=== PATIENT | female | born 1925 | race Caucasian/White ===

== ENCOUNTER → 2017-01-15 | Outpatient (CLI) | payer MEDICARE, BC | END | disposition home or self-care (01) | LOC: LABWHC1 13:29 | PROVIDERS: ATTEND Nurse Practitioner Family | DX: Z53.9 Procedure and treatment not carried out, unspecified reason (principal) ==

== ENCOUNTER 2017-03-03 00:20 | Inpatient (IN) | payer MEDICARE, BC ==
[2017-03-03] MEDS ORDERED: SODIUM CHLORIDE 0.9% 500 ML IV STA (00:45)
--- NOTE | 2017-03-03 01:31 | XR ---
Age: 89 years Gender: Female History: Reason: altered mental status Exam: XR CXR 2 VIEWS Comparison: None Findings: Heart size is mildly enlarged. There is pulmonary vascular congestion. Interstitial opacities throughout both lungs raising possibility of interstitial pulmonary edema. Asymmetric left basilar opacity may reflect atelectasis or possible infiltrate. No evidence of pleural effusion. Mild T12 vertebral compression fracture and probable mild L1 compression fracture only partially imaged on lateral chest radiograph. Impression: Cardiomegaly with findings suggesting mild congestive failure and interstitial pulmonary edema. Left basilar atelectasis or possible infiltrate. Bony findings as described in body of report.
[2017-03-03 01:39] LABS: Glucose,Whole Blood 209 mg/dL (75-99)
[2017-03-03] MEDS ORDERED: MECLIZINE 12.5 MG TAB PO STA (01:49)
--- NOTE | 2017-03-03 01:50 | ED ---
Dizziness HPI <Moody Howard - Last Filed: 03/03/17 04:35> - General Source: EMS, RN notes reviewed, old records reviewed Mode of arrival: EMS Limitations: no limitations <Sejal Krueger - Last Filed: 03/03/17 06:03> - General Chief Complaint: Dizziness Stated Complaint: DIZZINESS Time Seen by Provider: 03/03/17 00:27 - History of Present Illness Initial Comments: This is an 89-year-old female presenting to the emergency Department chief complaint of sudden onset of dizziness at 10:30 AM and slurring her speech 10 minutes prior to arrival via EMS.. Patient reports that she was sitting at home in bed when she had the sensation occur. She reports that the room is spinning. She states that she's had a history of strokes in the past. She denies any other symptoms and felt good prior to the symptoms. Patient states that she does take medications for diabetes, high blood pressure. She has a history of A. fib and is currently on 0 toe and Plavix. She reports that she's had multiple vascular procedures including right sided femoral stents and she believed left-sided carotid stents. She reports that those are done by Dr. Ybarra.. Her ports that she did vomit she feels like everything is drifting towards the right side of the room.Patient denies any recent fever, chills, shortness of breath, chest pain, back pain, abdominal pain, nausea vomiting, numbness or tingling, dysuria or hematuria, constipation or diarrhea, headaches or visual changes, or any other current symptoms. (Sejal Krueger) - Related Data Home Medications Medication Instructions Recorded Confirmed Allopurinol [Zyloprim] 100 mg PO DAILY 07/20/14 01/15/17 Aspirin 81 mg PO HS 07/20/14 01/15/17 Atenolol 100 mg PO BID 07/20/14 01/15/17 Cholecalciferol [Vitamin D3] 1,000 unit PO DAILY@1200 07/20/14 01/15/17 Insulin Glargine,Hum.rec.anlog 20 unit SQ HS 07/20/14 01/15/17 [Lantus Solostar] Isosorbide Mononitrate [Imdur] 30 mg PO DAILY 07/20/14 01/15/17 Rivaroxaban [Xarelto] 20 mg PO HS 07/20/14 09/19/14 amLODIPine [Norvasc] 5 mg PO BID 07/20/14 01/15/17 glipiZIDE [Glucotrol] 10 mg PO AC-BID 07/20/14 01/15/17 sitaGLIPtin PHOSPHATE [Januvia] 100 mg PO DAILY 07/20/14 01/15/17 Furosemide [Lasix] 20 mg PO DAILY 08/03/14 01/15/17 Insulin Aspart [NovoLOG Flexpen] 0 units SQ AC-TID PRN 08/03/14 01/15/17 Benazepril [Lotensin] 20 mg PO DAILY 01/15/17 01/15/17 Budesonide-Formot 160-4.5 Mcg 2 puff INHALATION BID 01/15/17 01/15/17 [Symbicort 160-4.5 Mcg Inhaler] Pantoprazole [Protonix] 40 mg PO DAILY 01/15/17 01/15/17 metFORMIN HCL [Metformin HCl] 500 mg PO DAILY 01/15/17 01/15/17 Previous Rx's Medication Instructions Recorded Clopidogrel [Plavix] 75 mg PO DAILY #30 tab 08/05/14 Allergies Allergy/AdvReac Type Severity Reaction Status Date / Time digoxin AdvReac Hallucinati Verified 03/03/17 03:09 ons Review of Systems ROS Other: All systems not noted in ROS Statement are negative. <Moody Howard - Last Filed: 03/03/17 04:35> ROS Other: All systems not noted in ROS Statement are negative. <Sejal Krueger - Last Filed: 03/03/17 06:03> ROS Statement: Those systems with pertinent positive or pertinent negative responses have been documented in the HPI. Past Medical History Past Medical History: Atrial Fibrillation, Coronary Artery Disease (CAD), Diabetes Mellitus, GERD/Reflux, Hyperlipidemia, Hypertension, Memory Impairment , Renal Disease, Skin Disorder, Vascular Disorder Additional Past Medical History / Comment(s): NH ULCER RT GREAT TOE. EDEMA MEL LEGS. SOME MEMORY CHANGES NOTED, SL DEMENTIA.PAD History of Any Multi-Drug Resistant Organisms: None Reported Past Surgical History: Appendectomy, Hysterectomy Additional Past Surgical History / Comment(s): carotid endartectomy left side, right leg stents 2012; ABD AORTOGRAM, RT FEM ANGIOGRAM.HX PERIPHERAL ANGIOGRAM THEN ANGIOPLASTY OF RT POPLITEAL ARTERY WITH STENTING OF RT TIBIOPERITONEAL TRUNCK , ALSO ATHRECTOMY OF RT POLITEAL/TIBIOPERTONEAL TRUNCK ( 08/04/14).HAD RT GREAT TOE NAIL REMOVED D/T INFECTION Past Anesthesia/Blood Transfusion Reactions: No Reported Reaction Past Psychological History: No Psychological Hx Reported Smoking Status: Never smoker Past Alcohol Use History: None Reported Past Drug Use History: None Reported - Past Family History Son(s) Family Medical History: Cancer Father Family Medical History: Coronary Artery Disease (CAD) <Sejal Krueger - Last Filed: 03/03/17 06:03> General Exam <YanivdariMoody - Last Filed: 03/03/17 04:35> Limitations: no limitations General appearance: alert, in no apparent distress Head exam: Present: atraumatic, normocephalic, normal inspection Eye exam: Present: normal appearance, PERRL, EOMI. Absent: scleral icterus, conjunctival injection, periorbital swelling ENT exam: Present: normal exam, mucous membranes moist, other (Patient has minimal left-sided facial droop.) Neck exam: Present: normal inspection. Absent: tenderness, meningismus, lymphadenopathy Respiratory exam: Present: normal lung sounds bilaterally. Absent: respiratory distress, wheezes, rales, rhonchi, stridor Cardiovascular Exam: Present: regular rate, normal rhythm, normal heart sounds. Absent: systolic murmur, diastolic murmur, rubs, gallop, clicks GI/Abdominal exam: Present: soft, normal bowel sounds. Absent: distended, tenderness, guarding, rebound, rigid Extremities exam: Present: normal inspection, full ROM, normal capillary refill. Absent: tenderness, pedal edema, joint swelling, calf tenderness Back exam: Present: normal inspection Neurological exam: Present: alert, oriented X3, CN II-XII intact Expanded Patient oriented to: Present: person, place, time Speech: Present: fluid speech Cranial nerves: EOM's Intact: Normal, Facial Sensation: Normal, Facial Palsy with Forehead Movement: Abnormal Left (Has a left sided lower facial droop. ) Cerebellar function: Finger to Nose: Abnormal Right (Patient initially had an abnormal finger to nose function.) Upper motor neuron: Pronator Drift: Abnormal Right (Has a right-sided pronator drift.) Sensory exam: Upper Extremity Light Touch: Normal, Lower Extremity Light Touch: Normal Motor strength exam: RUE: 5, LUE: 5, RLE: 5, LLE: 5 Eye Response: (4) open spontaneously Motor Response: (6) obeys commands Verbal Response: (5) oriented [place] Total: 15 Psychiatric exam: Present: normal affect, normal mood Skin exam: Present: warm, dry, intact, normal color. Absent: rash <Sejal Krueger - Last Filed: 03/03/17 06:03> - General Exam Comments Initial Comments: 89-year-old female. Patient is laying in bed and resting comfortably. She does not appear to be in any acute distress. (Sejal Krueger) Course <Moody Howard - Last Filed: 03/03/17 04:35> <Sejal Krueger - Last Filed: 03/03/17 06:03> Vital Signs 03/03/17 03/03/17 03/03/17 00:27 01:30 01:45 Temperature 96.9 F L Pulse Rate 82 66 64 Respiratory 18 18 18 Rate Blood Pressure 169/77 172/73 173/76 O2 Sat by Pulse 95 94 L 93 L Oximetry 03/03/17 03/03/17 03/03/17 02:00 02:15 02:30 Temperature Pulse Rate 64 62 69 Respiratory 18 18 18 Rate Blood Pressure 173/76 185/71 171/93 O2 Sat by Pulse 93 L 97 97 Oximetry 03/03/17 03/03/17 03/03/17 02:45 03:00 03:15 Temperature Pulse Rate 68 64 74 Respiratory 18 18 18 Rate Blood Pressure 183/75 157/77 167/74 O2 Sat by Pulse 94 L 96 96 Oximetry 03/03/17 03/03/17 03/03/17 03:30 03:45 04:00 Temperature Pulse Rate 57 L 60 78 Respiratory 18 18 18 Rate Blood Pressure 164/70 175/74 158/90 O2 Sat by Pulse 96 96 95 Oximetry 03/03/17 04:45 Temperature Pulse Rate 80 Respiratory 18 Rate Blood Pressure 193/74 O2 Sat by Pulse 96 Oximetry - Reevaluation(s) Reevaluation #1: 03/03/17 02:20 Patient was reevaluated at this time Dr. Hancock. NIH scale went from 4-6. CT TATE was ordered. Code stroke paged overhead. (Sejal Krueger) Medical Decision Making - Lab Data Result diagrams: 03/03/17 01:30 03/03/17 01:30 <Moody Howard - Last Filed: 03/03/17 04:35> - Lab Data Result diagrams: 03/03/17 01:30 03/03/17 01:30 - Radiology Data Radiology results: report reviewed <Sejal Krueger - Last Filed: 03/03/17 06:03> - Medical Decision Making I saw this patient in conjunction with the physician research study assistant. I performed independent history and physical exam. Agree with case management. (Moody Howard) 3-year-old female presents emergency Department chief complaint of dizziness, and slurred speech and right sided weakness. Patient had evidence of positive pronator drift, no slurred speech upon arriving to the emergency department. CT brain was done with contrast that showed no acute abnormalities. IV labs were started patient's NIH scale was initially 4. Patient was then reevaluated and NIH scale 6. Code stroke is called and discussed this case with Dr. Loving. He discussed with patient's symptoms and the patient is currently on Plavix answer all to she is not a candidate for TPA. Patient family and patient was informed of these results.. Dr. Ponce discussed she has had a CT angiogram to rule out basilar infarct. After CT angiogram patient was then reevaluated and had resolution of her symptoms. Patient and NIH scale of 0. No pronator drift. CT angiogram head and neck showed a significant intraoral carotid stenosis of both the right and left. In the right internal carotid knee there is evidence of 50-60% stenosis within the right internal carotid. There was a evidence of a proximal 70-80% stenosis involving the origin a left proximal left internal carotid artery. She reports that she has seen Dr. Ybarra in the past for understands and has had these monitored. They report that they've told her that she's had no acute changes in this. Again patient was reevaluated and her symptoms have resolved besides having some nausea. She was given Zofran. Patient will be admitted to the unit for stroke symptoms. Patient was given aspirin. Patient's family was informed of these results and agreed to admission. Discussed CODE STATUS with the family at this time and at this time patient is full code. They plan to get her medical decision pain occurs at home tomorrow. (Xiomy Kruegerily) - Lab Data Lab Results 03/03/17 03/03/17 03/03/17 Range/Units 01:30 01:30 01:30 WBC 10.0 (3.8-10.6) k/uL RBC 4.31 (3.80-5.40) m/uL Hgb 12.9 (11.4-16.0) gm/dL Hct 40.1 (34.0-46.0) % MCV 93.0 (80.0-100.0) fL MCH 29.9 (25.0-35.0) pg MCHC 32.1 (31.0-37.0) g/dL RDW 18.9 H (11.5-15.5) % Plt Count 242 (150-450) k/uL Neutrophils % 82 % Lymphocytes % 10 % Monocytes % 5 % Eosinophils % 1 % Basophils % 1 % Neutrophils # 8.2 H (1.3-7.7) k/uL Lymphocytes # 1.0 (1.0-4.8) k/uL Monocytes # 0.5 (0-1.0) k/uL Eosinophils # 0.1 (0-0.7) k/uL Basophils # 0.1 (0-0.2) k/uL Anisocytosis Slight PT (9.0-12.0) sec INR (<1.2) APTT (22.0-30.0) sec Sodium 136 L (137-145) mmol/L Potassium 5.1 (3.5-5.1) mmol/L Chloride 98 (98-107) mmol/L Carbon Dioxide 28 (22-30) mmol/L Anion Gap 10 mmol/L BUN 40 H (7-17) mg/dL Creatinine 1.10 H (0.52-1.04) mg/dL Est GFR (MDRD) Af Amer 57 (>60 ml/min/1.73 sqM) Est GFR (MDRD) Non-Af 47 (>60 ml/min/1.73 sqM) Glucose 209 H (74-99) mg/dL POC Glucose (mg/dL) (75-99) mg/dL POC Glu [employer]ist ID Calcium 9.4 (8.4-10.2) mg/dL Total Bilirubin 1.2 (0.2-1.3) mg/dL AST 62 H (14-36) U/L ALT 23 (9-52) U/L Alkaline Phosphatase 57 (38-126) U/L Total Creatine Kinase 107 (30-135) U/L CK-MB (CK-2) 2.5 H* (0.0-2.4) ng/mL CK-MB (CK-2) Rel Index 2.3 Troponin I 0.021 (0.000-0.034) ng/mL Total Protein 7.1 (6.3-8.2) g/dL Albumin 4.4 (3.5-5.0) g/dL 03/03/17 03/03/17 Range/Units 01:30 01:37 WBC (3.8-10.6) k/uL RBC (3.80-5.40) m/uL Hgb (11.4-16.0) gm/dL Hct (34.0-46.0) % MCV (80.0-100.0) fL MCH (25.0-35.0) pg MCHC (31.0-37.0) g/dL RDW (11.5-15.5) % Plt Count (150-450) k/uL Neutrophils % % Lymphocytes % % Monocytes % % Eosinophils % % Basophils % % Neutrophils # (1.3-7.7) k/uL Lymphocytes # (1.0-4.8) k/uL Monocytes # (0-1.0) k/uL Eosinophils # (0-0.7) k/uL Basophils # (0-0.2) k/uL Anisocytosis PT 14.8 H (9.0-12.0) sec INR 1.5 H (<1.2) APTT 29.0 (22.0-30.0) sec Sodium (137-145) mmol/L Potassium (3.5-5.1) mmol/L Chloride (98-107) mmol/L Carbon Dioxide (22-30) mmol/L Anion Gap mmol/L BUN (7-17) mg/dL Creatinine (0.52-1.04) mg/dL Est GFR (MDRD) Af Amer (>60 ml/min/1.73 sqM) Est GFR (MDRD) Non-Af (>60 ml/min/1.73 sqM) Glucose (74-99) mg/dL POC Glucose (mg/dL) 209 H (75-99) mg/dL POC Glu [employer] Specialist ID Sejal Silverio Calcium (8.4-10.2) mg/dL Total Bilirubin (0.2-1.3) mg/dL AST (14-36) U/L ALT (9-52) U/L Alkaline Phosphatase (38-126) U/L Total Creatine Kinase (30-135) U/L CK-MB (CK-2) (0.0-2.4) ng/mL CK-MB (CK-2) Rel Index Troponin I (0.000-0.034) ng/mL Total Protein (6.3-8.2) g/dL Albumin (3.5-5.0) g/dL 03/03/17 01:55 EKG shows A. fib. Evidence of prolonged QT. Ventricular rate of 72 bpm. QRS duration 90 ms. QT QTc is 460/503 ms. (Sejal Krueger) - Radiology Data Chest x-ray shows cardiomegaly with findings suggesting congestive heart failure and interstitial pulmonary edema. Left basilar atelectasis or possible infiltrate. Mild T12 vertebral compression fracture and probable L1 compression fracture only partially imaged on the lateral chest x-ray. CT angiogram shows extensive diffuse calcifications atherosclerotic disease involving the cavernous internal carotid arteries bilaterally limiting CT evaluation. Distal intracranial internal carotid arteries, anterior cerebral and middle cerebral arteries are patent without any evidence of high-grade stenosis or major arterial occlusion. Moderate calcific atherosclerotic disease involving distal vertebral arteries bilaterally. CT neck shows heterogeneous calcific atherosclerotic plaque involving the right common carotid bifurcation in proximal right internal carotid with evidence of 50-60% stenosis of proximal right internal carotid artery. Heterogeneous calcific atherosclerotic plaque involving the left common bifurcation in proximal left internal carotid with evidence of 70-80% stenosis involving the proximal left internal carotid artery. Vertebral arteries appear patent with calcific plaque involving the origin of the right vertebral artery. There is a right lobe thyroid nodule. Correlation with thyroid ultrasound is recommended. (Sejal Krueger) Disposition <Moody Howard - Last Filed: 03/03/17 04:35> Time of Disposition: 04:12 <Sejal Krueger - Last Filed: 03/03/17 06:03> Clinical Impression: Stroke, Diabetes, Hypertension Disposition: ADMITTED IP TO THIS HOSP Condition: Stable
[2017-03-03 02:01] LABS: Anisocytosis Slight; Basophils # (A) 0.1 k/uL (0-0.2); Basophils % (A) 1 %; CH 29.9; CHCM 32.2; Eosinophils # (A) 0.1 k/uL (0-0.7); Eosinophils % (A) 1 %; HCT 40.1 % (34.0-46.0); HDW 2.45; HGB 12.9 gm/dL (11.4-16.0); Luc # (Auto) 0.13; Luc % (Auto) 1; Lymphocytes % (A) 10 %; MCH 29.9 pg (25.0-35.0); MCHC 32.1 g/dL (31.0-37.0); Mean Platelet Volume 7.7; Monocytes # (A) 0.5 k/uL (0-1.0); Monocytes % (A) 5 %; Neutrophils # (A) 8.2 k/uL (1.3-7.7); Neutrophils % (A) 82 %; RBC 4.31 m/uL (3.80-5.40); RDW 18.9 % (11.5-15.5); WBC (Perox) 9.88
[2017-03-03 02:05] LABS: Calcium 9.4 mg/dL (8.4-10.2); INR 1.5 (<1.2); Prothrombin Time 14.8 sec (9.0-12.0); Total Bilirubin 1.2 mg/dL (0.2-1.3); Total Protein 7.1 g/dL (6.3-8.2)
--- NOTE | 2017-03-03 02:05 | CT ---
Age: 89 years Gender: Female History: Pain Exam: CT HEAD Without Contrast Technique more: CTDI is 57.4 mGy and DLP is 892.1 mGy-cm. Technique more: This CT exam was performed using one or more of the following dose reduction techniques: automated exposure control, adjustment of the mA and/or kV according to patient size, and/or use of iterative reconstruction technique. Comparison: None COMMENT: Ventricles, cisterns and sulci: Cerebral atrophy and volume loss. Mendez and white matter: Diffuse periventricular and subcortical microangiopathic chronic white matter ischemic changes as well as some areas of cortical encephalomalacia likely related to prior infarcts. No evidence of acute cortical cerebral infarction or intracranial hemorrhage. Mass effect, midline shift or extra-axial fluid collection: None Posterior fossa: Unremarkable Orbits: Unremarkable Cerebral vasculature: Atherosclerosis at the skull base Calvarium and soft tissues: No skull fracture or soft tissue injury Paranasal sinuses and mastoid air cells: Clear IMPRESSION: No evidence of acute intracranial abnormality.
[2017-03-03 02:06] LABS: Potassium 5.1 mmol/L (3.5-5.1)
[2017-03-03] MEDS ORDERED: RX INFO: IV CONTRAST WAS GIVEN 1 EACH MISC MISCELLANE PRN (02:06)
[2017-03-03 02:22] LABS: Troponin I 0.021 ng/mL (0.000-0.034)
[2017-03-03 02:24] LABS: Creatine Kinase MB 2.5 ng/mL (0.0-2.4)
[2017-03-03] MEDS: SODIUM CHLORIDE 0.9% 1,000 ML IV SCH (03:37)
--- NOTE | 2017-03-03 03:38 | CT ---
EXAM: CT Head With Intravenous Contrast CLINICAL HISTORY: Reason: Pain TECHNIQUE: Axial computed tomography images of the head with intravenous contrast during the arterial phase of enhancement. CTDI is 105.1 mGy and DLP is 214.4 mGy-cm. This CT exam was performed using one or more of the following dose reduction techniques: automated exposure control, adjustment of the mA and/or kV according to patient size, and/or use of iterative reconstruction technique. Coronal and sagittal reformatted images were created and reviewed. COMPARISON: CT head 03/03/2017 FINDINGS: Right internal carotid artery: Extensive diffuse calcific atherosclerotic disease involving cavernous carotid artery limiting CT evaluation. Distal intracranial internal carotid artery is patent. Right anterior cerebral artery: Unremarkable. No occlusion or significant stenosis. No aneurysm. Right middle cerebral artery: Unremarkable. No occlusion or significant stenosis. No aneurysm. Right posterior cerebral artery: Unremarkable. No occlusion or significant stenosis. No aneurysm. Right vertebral artery: Moderate calcific atherosclerotic disease involving distal vertebral artery Left internal carotid artery: Extensive diffuse calcific atherosclerotic disease involving cavernous carotid artery limiting CT evaluation. Distal intracranial internal carotid artery is patent. Left anterior cerebral artery: Unremarkable. No occlusion or significant stenosis. No aneurysm. Left middle cerebral artery: Unremarkable. No occlusion or significant stenosis. No aneurysm. Left posterior cerebral artery: Unremarkable. No occlusion or significant stenosis. No aneurysm. Left vertebral artery: Moderate calcific atherosclerotic disease involving distal vertebral artery Basilar artery: Unremarkable. No occlusion or significant stenosis. No aneurysm. IMPRESSION: Extensive diffuse calcific atherosclerotic disease involving the cavernous internal carotid arteries bilaterally limiting CT evaluation. Distal intracranial internal carotid arteries, anterior cerebral and middle cerebral arteries are patent without evidence of high-grade stenosis or major arterial occlusion. Moderate calcific atherosclerotic disease involving distal vertebral arteries bilaterally. EXAM: CT Neck With Intravenous Contrast CLINICAL HISTORY: Reason: Pain TECHNIQUE: Axial computed tomography images of the neck with intravenous contrast during the arterial phase of contrast enhancement. CTDI is 105.1 mGy and DLP is 214.4 mGy-cm. This CT exam was performed using one or more of the following dose reduction techniques: automated exposure control, adjustment of the mA and/or kV according to patient size, and/or use of iterative reconstruction technique. Coronal and sagittal reformatted images were created and reviewed. COMPARISON: No relevant prior studies available. FINDINGS: Extensive metallic artifact emanating from dental hardware somewhat limiting CTA examination. VASCULATURE: Right common carotid artery: Heterogeneous and irregular calcific atherosclerotic plaque involving carotid bifurcation. Right internal carotid artery: Calcific atherosclerotic plaque with evidence of approximately 50-60 percent proximal right internal carotid artery stenosis Right external carotid artery: Unremarkable. No occlusion. Right vertebral artery: Calcific atherosclerotic plaque involving origin of right vertebral artery. Right cervical vertebral artery is otherwise patent Left common carotid artery: Heterogeneous calcific atherosclerotic plaque involving left common carotid bifurcation limiting CT evaluation. Evidence of approximately 70-80 percent stenosis involving carotid bifurcation and origin of left internal carotid artery. Left internal carotid artery: Atherosclerotic plaque with evidence of approximately 70-80 percent stenosis involving origin and proximal left internal carotid artery Left external carotid artery: Unremarkable. No occlusion. Left vertebral artery: Left vertebral artery is patent without evidence of high-grade stenosis or occlusion. NECK: Soft tissues: Asymmetric right thyroid lobe enlargement with approximately 2 cm right lobe thyroid nodule demonstrating some nodular calcifications. Correlation with thyroid ultrasound recommended. CAROTID STENOSIS REFERENCE USING NASCET CRITERIA: % ICA stenosis = (1 - narrowest ICA diameter/diameter of distal cervical ICA) x 100. Mild - <50% stenosis. Moderate - 50-69% stenosis. Severe - 70-94% stenosis. Near occlusion - 95-99% stenosis. Occluded - 100% stenosis. IMPRESSION: Heterogeneous calcific atherosclerotic plaque involving right common carotid bifurcation and proximal right internal carotid artery with evidence of approximately 50-60 percent stenosis of proximal right internal carotid artery. Heterogeneous calcific atherosclerotic plaque involving left common carotid bifurcation and proximal left internal carotid artery with evidence of approximately 70-80 percent stenosis involving origin and proximal left internal carotid artery. Vertebral arteries appear patent bilaterally with calcific plaque involving origin of right vertebral artery. Right lobe thyroid nodule. Correlation with thyroid ultrasound recommended.
[2017-03-03] MEDS ORDERED: ASPIRIN 325 MG TAB PO STA ×2 (04:13→09:01)
[2017-03-03] MEDS ORDERED: ONDANSETRON 4 MG/2 ML VIAL IVP STA (04:35)
[2017-03-03] MEDS ORDERED: FAMOTIDINE 20 MG/2 ML VIAL IV SCH (09:00)
--- NOTE | 2017-03-03 09:50 | P.GSCN ---
<Mindy Archer - Last Filed: 03/03/17 09:32> History of Present Illness Consult date: 03/03/17 Reason for Consult: Carotid stenosis, treatment recommendations. Requesting physician: Sejal Krueger History of present illness: This 89-year-old female presented to the emergency department last night with complaints of sudden onset of dizziness and slurred speech. She does have a history of strokes in the past, atrial fibrillation, left carotid endarterectomy , and other vascular procedures. She states that she was just sitting at home in bed when the symptoms occurred. She denied syncope, chest pain, shortness of breath, abdominal pain, fever, headaches, or visual changes. She had a CAT scan of the brain which was negative for any acute process and a CTA of the neck demonstrating right internal carotid artery stenosis 50-60% and left internal carotid artery stenosis of 70-80%. Dr. Ybarra was consulted for treatment recommendations for her carotid stenosis. As I evaluated her this morning, her slurred speech was gone however she still complained of dizziness combined with nausea. She also appeared to have a left facial droop. Review of Systems 14 point review systems was completed and was negative except as noted. - Gastrointestinal Reports as per HPI, Reports nausea - Neurological Reports as per HPI Past Medical History Past Medical History: Atrial Fibrillation, Coronary Artery Disease (CAD), Diabetes Mellitus, GERD/Reflux, Hyperlipidemia, Hypertension, Memory Impairment , Renal Disease, Skin Disorder, Vascular Disorder Additional Past Medical History / Comment(s): NH ULCER RT GREAT TOE. EDEMA MEL LEGS. SOME MEMORY CHANGES NOTED, SL DEMENTIA.PAD History of Any Multi-Drug Resistant Organisms: None Reported Past Surgical History: Appendectomy, Hysterectomy Additional Past Surgical History / Comment(s): carotid endartectomy left side, right leg stents 2012; ABD AORTOGRAM, RT FEM ANGIOGRAM.HX PERIPHERAL ANGIOGRAM THEN ANGIOPLASTY OF RT POPLITEAL ARTERY WITH STENTING OF RT TIBIOPERITONEAL TRUNCK , ALSO ATHRECTOMY OF RT POLITEAL/TIBIOPERTONEAL TRUNCK ( 08/04/14).HAD RT GREAT TOE NAIL REMOVED D/T INFECTION Past Anesthesia/Blood Transfusion Reactions: No Reported Reaction Past Psychological History: No Psychological Hx Reported Smoking Status: Never smoker Past Alcohol Use History: None Reported Past Drug Use History: None Reported - Past Family History Son(s) Family Medical History: Cancer Father Family Medical History: Coronary Artery Disease (CAD) Medications and Allergies Home Medications Medication Instructions Recorded Confirmed Type Allopurinol [Zyloprim] 100 mg PO DAILY 07/20/14 03/03/17 History Aspirin 81 mg PO HS 07/20/14 03/03/17 History Atenolol 100 mg PO BID 07/20/14 03/03/17 History Cholecalciferol [Vitamin D3] 1,000 unit PO DAILY 07/20/14 03/03/17 History Insulin Glargine,Hum.rec.anlog 20 unit SQ HS 07/20/14 03/03/17 History [Lantus Solostar] Isosorbide Mononitrate [Imdur] 30 mg PO DAILY 07/20/14 03/03/17 History Rivaroxaban [Xarelto] 20 mg PO HS 07/20/14 03/03/17 History amLODIPine [Norvasc] 5 mg PO BID 07/20/14 03/03/17 History glipiZIDE [Glucotrol] 10 mg PO AC-BID 07/20/14 03/03/17 History sitaGLIPtin PHOSPHATE [Januvia] 100 mg PO DAILY 07/20/14 03/03/17 History Furosemide [Lasix] 20 mg PO DAILY 08/03/14 03/03/17 History Benazepril [Lotensin] 20 mg PO DAILY 01/15/17 03/03/17 History Budesonide-Formot 160-4.5 Mcg 2 puff INHALATION RT-BID 01/15/17 03/03/17 History [Symbicort 160-4.5 Mcg Inhaler] Pantoprazole [Protonix] 40 mg PO DAILY 01/15/17 03/03/17 History metFORMIN HCL [Metformin HCl] 500 mg PO DAILY 01/15/17 03/03/17 History Gabapentin [Neurontin] 100 mg PO BID 03/03/17 03/03/17 History Allergies Allergy/AdvReac Type Severity Reaction Status Date / Time digoxin AdvReac Hallucinati Verified 03/03/17 06:27 ons Surgical - Exam Vital Signs Temp Pulse Resp BP Pulse Ox 96.9 F L 82 18 169/77 95 03/03/17 00:27 03/03/17 00:27 03/03/17 00:27 03/03/17 00:27 03/03/17 00:27 - General well developed, well nourished - Eyes PERRL, normal ocular movement - ENT no hearing loss - Neck trachea midline - Respiratory Lungs sounds diminished bilaterally. Respirations even, nonlabored. Currently on 2 L nasal cannula with oxygen saturation 96%. - Cardiovascular S1, S2 present. Irregular rate and rhythm, atrial fibrillation on telemetry. - Abdomen Abdomen: soft, non tender, bowel sounds - Genitourinary Deferred - Rectum Deferred - Integumentary no rash, no growths - Neurologic normal coordination, normal sensation - Psychiatric oriented to time, oriented to person, oriented to place, speech is normal, memory intact Results - Labs 03/03/17 01:30 03/03/17 01:30 Abnormal Lab Results - Last 24 Hours (Table) 03/03/17 03/03/17 03/03/17 Range/Units 01:30 01:30 01:30 RDW 18.9 H (11.5-15.5) % Neutrophils # 8.2 H (1.3-7.7) k/uL PT (9.0-12.0) sec INR (<1.2) Sodium 136 L (137-145) mmol/L BUN 40 H (7-17) mg/dL Creatinine 1.10 H (0.52-1.04) mg/dL Glucose 209 H (74-99) mg/dL POC Glucose (mg/dL) (75-99) mg/dL AST 62 H (14-36) U/L CK-MB (CK-2) 2.5 H* (0.0-2.4) ng/mL 03/03/17 03/03/17 Range/Units 01:30 01:37 RDW (11.5-15.5) % Neutrophils # (1.3-7.7) k/uL PT 14.8 H (9.0-12.0) sec INR 1.5 H (<1.2) Sodium (137-145) mmol/L BUN (7-17) mg/dL Creatinine (0.52-1.04) mg/dL Glucose (74-99) mg/dL POC Glucose (mg/dL) 209 H (75-99) mg/dL AST (14-36) U/L CK-MB (CK-2) (0.0-2.4) ng/mL Diabetes panel 03/03/17 Range/Units 01:30 Sodium 136 L (137-145) mmol/L Potassium 5.1 (3.5-5.1) mmol/L Chloride 98 (98-107) mmol/L Carbon Dioxide 28 (22-30) mmol/L BUN 40 H (7-17) mg/dL Creatinine 1.10 H (0.52-1.04) mg/dL Glucose 209 H (74-99) mg/dL Calcium 9.4 (8.4-10.2) mg/dL AST 62 H (14-36) U/L ALT 23 (9-52) U/L Alkaline Phosphatase 57 (38-126) U/L Total Protein 7.1 (6.3-8.2) g/dL Albumin 4.4 (3.5-5.0) g/dL Calcium panel 03/03/17 Range/Units 01:30 Calcium 9.4 (8.4-10.2) mg/dL Albumin 4.4 (3.5-5.0) g/dL Pituitary panel 03/03/17 Range/Units 01:30 Sodium 136 L (137-145) mmol/L Potassium 5.1 (3.5-5.1) mmol/L Chloride 98 (98-107) mmol/L Carbon Dioxide 28 (22-30) mmol/L BUN 40 H (7-17) mg/dL Creatinine 1.10 H (0.52-1.04) mg/dL Glucose 209 H (74-99) mg/dL Calcium 9.4 (8.4-10.2) mg/dL Adrenal panel 03/03/17 Range/Units 01:30 Sodium 136 L (137-145) mmol/L Potassium 5.1 (3.5-5.1) mmol/L Chloride 98 (98-107) mmol/L Carbon Dioxide 28 (22-30) mmol/L BUN 40 H (7-17) mg/dL Creatinine 1.10 H (0.52-1.04) mg/dL Glucose 209 H (74-99) mg/dL Calcium 9.4 (8.4-10.2) mg/dL Total Bilirubin 1.2 (0.2-1.3) mg/dL AST 62 H (14-36) U/L ALT 23 (9-52) U/L Alkaline Phosphatase 57 (38-126) U/L Total Protein 7.1 (6.3-8.2) g/dL Albumin 4.4 (3.5-5.0) g/dL - Imaging Chest x-ray: image reviewed Additional studies: CT of the brain, CTA of the neck reviewed. Assessment and Plan (1) Chronic atrial fibrillation Status: Acute (2) Coronary artery disease Status: Acute (3) Hyperlipidemia Status: Acute (4) History of left-sided carotid endarterectomy Status: Acute (5) Diabetes Status: Acute (6) Hypertension Status: Acute (7) Carotid artery disease Status: Acute Plan: The patient was seen and examined at the bedside. Chart/diagnostics were reviewed. Would appreciate neurology recommendations. Physical therapy and occupational therapy on consult. Recommend blood pressure control. Recommend aspirin, statin therapy. Recommend lifestyle modifications. Will discuss the case with Dr. Ybarra. More recommendations to follow. Thank you for this consult. We look forward to working with you in the care of your patient. Time with Patient: Greater than 30 <Pardeep Ybarra - Last Filed: 03/04/17 10:45> History of Present Illness History of present illness: DIRECTOR STAFFING notes reviewed and accepted. This patient's symptoms were somewhat nonfocal. Carotid duplex suggests less than 70% bilateral ICA stenosis. The higher grade stenosis was seen on a CT which did not follow usual protocols. Consider its report somewhat suspect. Given the patient's advanced age and the nonspecific nature of her symptoms as well as a negative CT brain, I would recommend treating other possible medical causes for her symptomatology, especially the nausea, which seemed to bring on the symptoms otherwise. I will continue to follow her as an outpatient. Surgical - Exam Osteopathic Statement: *. No significant issues noted on an osteopathic structural exam other than those noted in the History and Physical/Consult. Vital Signs Temp Pulse Resp BP Pulse Ox 96.9 F L 82 18 169/77 95 03/03/17 00:27 03/03/17 00:27 03/03/17 00:27 03/03/17 00:27 03/03/17 00:27 Results - Labs 03/04/17 04:00 03/04/17 04:00 Abnormal Lab Results - Last 24 Hours (Table) 03/03/17 03/03/17 03/03/17 Range/Units 11:37 16:42 20:46 RDW (11.5-15.5) % Sodium (137-145) mmol/L BUN (7-17) mg/dL Glucose (74-99) mg/dL POC Glucose (mg/dL) 282 H 230 H 220 H (75-99) mg/dL 03/04/17 03/04/17 03/04/17 Range/Units 04:00 04:00 05:52 RDW 18.8 H (11.5-15.5) % Sodium 135 L (137-145) mmol/L BUN 22 H (7-17) mg/dL Glucose 133 H (74-99) mg/dL POC Glucose (mg/dL) 159 H (75-99) mg/dL Diabetes panel 03/04/17 Range/Units 04:00 Sodium 135 L (137-145) mmol/L Potassium 4.1 (3.5-5.1) mmol/L Chloride 98 (98-107) mmol/L Carbon Dioxide 24 (22-30) mmol/L BUN 22 H (7-17) mg/dL Creatinine 0.80 (0.52-1.04) mg/dL Glucose 133 H (74-99) mg/dL Calcium 9.5 (8.4-10.2) mg/dL Triglycerides 130 (<150) mg/dL HDL Cholesterol 55 (40-60) mg/dL Calcium panel 03/04/17 Range/Units 04:00 Calcium 9.5 (8.4-10.2) mg/dL Pituitary panel 03/04/17 Range/Units 04:00 Sodium 135 L (137-145) mmol/L Potassium 4.1 (3.5-5.1) mmol/L Chloride 98 (98-107) mmol/L Carbon Dioxide 24 (22-30) mmol/L BUN 22 H (7-17) mg/dL Creatinine 0.80 (0.52-1.04) mg/dL Glucose 133 H (74-99) mg/dL Calcium 9.5 (8.4-10.2) mg/dL Adrenal panel 03/04/17 Range/Units 04:00 Sodium 135 L (137-145) mmol/L Potassium 4.1 (3.5-5.1) mmol/L Chloride 98 (98-107) mmol/L Carbon Dioxide 24 (22-30) mmol/L BUN 22 H (7-17) mg/dL Creatinine 0.80 (0.52-1.04) mg/dL Glucose 133 H (74-99) mg/dL Calcium 9.5 (8.4-10.2) mg/dL
--- NOTE | 2017-03-03 10:48 | US ---
EXAMINATION TYPE: US carotid duplex BILAT DATE OF EXAM: 03/03/2017 COMPARISON: Previous study dated 09/20/2014. CLINICAL HISTORY: Stenosis. Dizziness, exam done portable. EXAM MEASUREMENTS: RIGHT: Peak Systolic Velocity (PSV) cm/sec ----- Right CCA: 55.7 ----- Right ICA: 100.7 ----- Right ECA: 98.5 ICA/CCA ratio: 1.8 RIGHT: End Diastole cm/sec ----- Right CCA: 0.0 ----- Right ICA: 11.7 ----- Right ECA: 0.0 LEFT: Peak Systolic Velocity (PSV) cm/sec ----- Left CCA: 45.3 ----- Left ICA: 56.7 ----- Left ECA: 88.7 ICA/CCA ratio: 1.3 LEFT: End Diastole cm/sec ----- Left CCA: 0.0 ----- Left ICA: 8.0 ----- Left ECA: 0.0 VERTEBRALS (direction of flow): Right Vertebral: Antegrade Left Vertebral: Antegrade Bilateral intimal thickening, plaque bilateral bulb and proximal ICA, no elevated velocities, no sign ificant stenosis at this time. IMPRESSION: I DO NOT SEE EVIDENCE OF A HEMODYNAMICALLY SIGNIFICANT STENOSIS IN EITHER CAROTID SYSTEM. Criteria for Assigning % of Stenosis / Diameter reduction (Estimation based on the indirect measurements of the internal carotid artery velocities (ICA PSV). 1. Normal (no stenosis)=ICA PSV < 125 cm/s: ratio < 2.0: ICA EDV<40 cm/s. 2. Less than 50% stenosis=ICA PSV < 125 cm/s: ratio < 2.0: ICA EDV<40 cm/s. 3. 50 to 69% stenosis=ICA PSV of 125 to 230 cm/s: ration 2.0 ? 4.0: ICA EDV 40-100 cm/s. 4. Greater than 70% stenosis to near occlusion= ICA PSV > 230 cm/s: ratio > 4.0: ICA EDV > 100 cm/s. 5. Near occlusion= ICA PSV velocities may be low or undetectable: variable ratio and ICA EDV. 6. Total occlusion=unable to detect flow.
[2017-03-03 12:07] LABS: Glucose,Whole Blood 282 mg/dL (75-99)
[2017-03-03] MEDS ORDERED: MECLIZINE 25 MG TAB PO PRN (16:12)
--- NOTE | 2017-03-03 16:16 | P.HPIM ---
History of Present Illness This 89-year-old female presented to the emergency department last night with complaints of sudden onset of dizziness and slurred speech, generalized weakness and patient doesn't have any focal weakness but patient has significant gait instability and patient normally uses a cane now has to use a walker she's acute onset only from yesterday. Patient dizziness is mostly room spinning around and patient's were dizziness symptoms doesn't change with head movement. Denied any deafness fullness in the years and recent ear infections. I didn't do [place]- halspike maneuver patient was quite weak. The of the head did not show any acute abnormality. She does have a history of strokes in the past, atrial fibrillation, left carotid endarterectomy, and other vascular procedures. She states that she was just sitting at home in bed when the symptoms occurred. She denied syncope, chest pain, shortness of breath, abdominal pain, fever, headaches, or visual changes. She had a CAT scan of the brain which was negative for any acute process and a CTA of the neck demonstrating right internal carotid artery stenosis 50-60% and left internal carotid artery stenosis of 70-80%. , her slurred speech was gone however she still complained of dizziness combined with nausea. Review of Systems REVIEW OF SYSTEMS: CONSTITUTIONAL: No fever, no malaise, no fatigue. HEENT: No recent visual problems or hearing problems. Denied any sore throat. CARDIOVASCULAR: No chest pain, orthopnea, PND, no palpitations, no syncope. PULMONARY: No shortness of breath, no cough, no hemoptysis. GASTROINTESTINAL: No diarrhea, no nausea, no vomiting, no abdominal pain. Normoactive bowel sounds. NEUROLOGICAL: No headaches, described in HPI patient doesn't have any seizures HEMATOLOGICAL: Denies any bleeding or petechiae. GENITOURINARY: Denies any burning micturition, frequency, or urgency. MUSCULOSKELETAL/RHEUMATOLOGICAL: Denies any joint pain, swelling, or any muscle pain. ENDOCRINE: Denies any polyuria or polydipsia. The rest of the 14-point review of systems is negative. Past Medical History Past Medical History: Atrial Fibrillation, Coronary Artery Disease (CAD), Diabetes Mellitus, GERD/Reflux, Hyperlipidemia, Hypertension, Memory Impairment , Renal Disease, Skin Disorder, Vascular Disorder Additional Past Medical History / Comment(s): [place] ULCER RT GREAT TOE. EDEMA MEL LEGS. SOME MEMORY CHANGES NOTED, SL DEMENTIA.PAD History of Any Multi-Drug Resistant Organisms: None Reported Past Surgical History: Appendectomy, Hysterectomy Additional Past Surgical History / Comment(s): carotid endartectomy left side, right leg stents 2012; ABD AORTOGRAM, RT FEM ANGIOGRAM.HX PERIPHERAL ANGIOGRAM THEN ANGIOPLASTY OF RT POPLITEAL ARTERY WITH STENTING OF RT TIBIOPERITONEAL TRUNCK , ALSO ATHRECTOMY OF RT POLITEAL/TIBIOPERTONEAL TRUNCK ( 08/04/14).HAD RT GREAT TOE NAIL REMOVED D/T INFECTION Past Anesthesia/Blood Transfusion Reactions: No Reported Reaction Past Psychological History: No Psychological Hx Reported Smoking Status: Never smoker Past Alcohol Use History: None Reported Past Drug Use History: None Reported - Past Family History Son(s) Family Medical History: Cancer Father Family Medical History: Coronary Artery Disease (CAD) Medications and Allergies Home Medications Medication Instructions Recorded Confirmed Type Allopurinol [Zyloprim] 100 mg PO DAILY 07/20/14 03/03/17 History Aspirin 81 mg PO HS 07/20/14 03/03/17 History Atenolol 100 mg PO BID 07/20/14 03/03/17 History Cholecalciferol [Vitamin D3] 1,000 unit PO DAILY 07/20/14 03/03/17 History Insulin Glargine,Hum.rec.anlog 20 unit SQ HS 07/20/14 03/03/17 History [Lantus Solostar] Isosorbide Mononitrate [Imdur] 30 mg PO DAILY 07/20/14 03/03/17 History Rivaroxaban [Xarelto] 20 mg PO HS 07/20/14 03/03/17 History amLODIPine [Norvasc] 5 mg PO BID 07/20/14 03/03/17 History glipiZIDE [Glucotrol] 10 mg PO AC-BID 07/20/14 03/03/17 History sitaGLIPtin PHOSPHATE [Januvia] 100 mg PO DAILY 07/20/14 03/03/17 History Furosemide [Lasix] 20 mg PO DAILY 08/03/14 03/03/17 History Benazepril [Lotensin] 20 mg PO DAILY 01/15/17 03/03/17 History Budesonide-Formot 160-4.5 Mcg 2 puff INHALATION RT-BID 01/15/17 03/03/17 History [Symbicort 160-4.5 Mcg Inhaler] Pantoprazole [Protonix] 40 mg PO DAILY 01/15/17 03/03/17 History metFORMIN HCL [Metformin HCl] 500 mg PO DAILY 01/15/17 03/03/17 History Gabapentin [Neurontin] 100 mg PO BID 03/03/17 03/03/17 History Allergies Allergy/AdvReac Type Severity Reaction Status Date / Time digoxin AdvReac Hallucinati Verified 03/03/17 06:27 ons Physical Exam Vitals: Vital Signs Temp Pulse Pulse Resp BP BP Pulse Ox 03/03/17 06:28 97.3 F L 81 16 132/97 97 03/03/17 04:45 80 18 193/74 96 03/03/17 04:00 78 18 158/90 95 03/03/17 03:45 60 18 175/74 96 03/03/17 03:30 57 L 18 164/70 96 03/03/17 03:15 74 18 167/74 96 03/03/17 03:00 64 18 157/77 96 03/03/17 02:45 68 18 183/75 94 L 03/03/17 02:30 69 18 171/93 97 03/03/17 02:15 62 18 185/71 97 03/03/17 02:00 64 18 173/76 93 L 03/03/17 01:45 64 18 173/76 93 L 03/03/17 01:30 66 18 172/73 94 L 03/03/17 00:27 96.9 F L 82 18 169/77 95 Intake and Output 03/03/17 03/03/17 03/03/17 06:59 14:59 22:59 Intake Total 200 100 Output Total 1 Balance 200 99 Intake: IV 200 Sodium Chloride 0.9% 1, 200 000 ml @ 100 mls/hr IV . Q10H [facility] Rx#:[id number] Oral 100 Output: Stool 1 Other: # Voids 1 2 # Bowel Movements 1 1 Weight 63.503 kg PHYSICAL EXAMINATION: GENERAL: The patient is alert and oriented x3, not in any acute distress. Well developed, well nourished. HEENT: Pupils are round and equally reacting to light. EOMI. No scleral icterus. No conjunctival pallor. Normocephalic, atraumatic. No pharyngeal erythema. No thyromegaly. CARDIOVASCULAR: S1 and S2 present. No murmurs, rubs, or gallops. PULMONARY: Chest is clear to auscultation, no wheezing or crackles. ABDOMEN: Soft, nontender, nondistended, normoactive bowel sounds. No palpable organomegaly. MUSCULOSKELETAL: No joint swelling or deformity. EXTREMITIES: No cyanosis, clubbing, or pedal edema. NEUROLOGICAL: Not appear to have focal deficits. Sensory system was not examined as neurology was already consulted although patient does have significant gait instability. SKIN: No rashes. Results CBC & Chem 7: 03/03/17 01:30 03/03/17 01:30 Labs: Abnormal Lab Results - Last 24 Hours (Table) 03/03/17 03/03/17 03/03/17 Range/Units 01:30 01:30 01:30 RDW 18.9 H (11.5-15.5) % Neutrophils # 8.2 H (1.3-7.7) k/uL PT (9.0-12.0) sec INR (<1.2) Sodium 136 L (137-145) mmol/L BUN 40 H (7-17) mg/dL Creatinine 1.10 H (0.52-1.04) mg/dL Glucose 209 H (74-99) mg/dL POC Glucose (mg/dL) (75-99) mg/dL AST 62 H (14-36) U/L CK-MB (CK-2) 2.5 H* (0.0-2.4) ng/mL 03/03/17 03/03/17 03/03/17 Range/Units 01:30 01:37 11:37 RDW (11.5-15.5) % Neutrophils # (1.3-7.7) k/uL PT 14.8 H (9.0-12.0) sec INR 1.5 H (<1.2) Sodium (137-145) mmol/L BUN (7-17) mg/dL Creatinine (0.52-1.04) mg/dL Glucose (74-99) mg/dL POC Glucose (mg/dL) 209 H 282 H (75-99) mg/dL AST (14-36) U/L CK-MB (CK-2) (0.0-2.4) ng/mL Thrombosis Risk Factor Assmnt - Choose All That Apply Any of the Below Risk Factors Present?: No Other Risk Factors: Yes Each Risk Factor Represents 3 Points: Age 75 years or older Other congenital or acquired thrombophilia - If yes, enter type in comment: Yes Each Risk Factor Represents 5 Points: Stroke (< 1 month) Thrombosis Risk Factor Assessment Total Risk Factor Score: 8 Thrombosis Risk Factor Assessment Level: High Risk Assessment and Plan Plan: 1 vertigo with gait instability: Etiology of vertigo is not clear neurology was consulted and patient may benefit from an MRI considering her weakness gait instability along with vertiginous symptoms. Although will be started on meclizine for possible peripheral vertigo that is benign positional vertigo. Patient is already on anticoagulation with Xarelto along with aspirin and Plavix. 2 history of atrial fibrillation: And an anti-correlation patient is presently sinus rhythm. 3Coronary artery disease and peripheral acid disease for which patient is on aspirin and Plavix patient is also on a statin. 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
[2017-03-03 17:06] LABS: Glucose,Whole Blood 230 mg/dL (75-99)
--- NOTE | 2017-03-03 17:49 | P.CNNES ---
History of Present Illness Consult date: 03/03/17 Reason for Consult: Patient admitted with dizziness and right sided weakness. History of Present Illness: This patient is a 89-year-old right-handed white female who apparently yesterday evening at about 11 PM developed sudden onset of dizziness and vertigo -like symptoms. Apparently she was laying in bed and noticed that she was very dizzy. When she attempted to stand she was very weak and favored her right side. By 3 AM the symptoms did not improve. She did contact her daughter who decided to bring her to the emergency room for further evaluation. Patient has a known history of chronic atrial fibrillation. She has been taking combination of Xarelto and Plavix for treatment of her atrial fibrillation. She apparently has history of stents to the carotid arteries as well as more recently stents to her lower extremities. After having surgery and stent placement in the legs about 2 years ago she was started on Plavix in addition to her Xarelto. Patient has been doing fairly well up until this recent episode. She was seen in the emergency room and was sent for a CT of the brain which revealed no acute intracranial abnormality. She also had a CTA angiogram performed which revealed 50-60% stenosis of the right internal carotid artery and 70-80% stenosis of the left internal carotid artery. Patient has been seen by vascular surgery today and according to the patient was seen by Dr. Browne. He does not feel she requires any further investigation or surgical approach. She does have history of chronic atrial fibrillation and daughter has requested a cardiology evaluation for her as well. The patient did have episode of slurred speech yesterday which was noted by the daughter. She had difficulty getting her words out. This did improve as the day went on this morning and she seems to be doing much better according to the daughter with her speech. Patient does notice some difficulty with her right side. When she attempts to stand she feels very weak and favors her right side. The patient does have several stroke risk factors including history of diabetes mellitus, hypertension, and chronic atrial fibrillation. As noted she is maximally anticoagulated at this time on the combination of Xarelto and Plavix. We have discussed all of her clinical history today with the patient and her daughter at bedside. All of their questions were answered. Neurology is now been consulted for further evaluation and recommendations. Review of Systems Constitutional: Denies chills, Denies fever Eyes: denies blurred vision, denies pain Ears, nose, mouth and throat: Reports vertigo, Denies headache, Denies sore throat Cardiovascular: Denies chest pain, Denies shortness of breath Respiratory: Denies cough Gastrointestinal: Denies abdominal pain, Denies diarrhea, Denies nausea, Denies vomiting Genitourinary: Denies dysuria, Denies hematuria Musculoskeletal: Denies myalgias Integumentary: Denies pruritus, Denies rash Neurological: Reports balance difficulties, Reports change in speech, Reports confusion, Reports lack of coordination, Reports motor disturbance, Reports paresthesias, Reports vertigo, Denies numbness, Denies weakness Psychiatric: Denies anxiety, Denies depression Endocrine: Denies fatigue, Denies weight change Past Medical History Past Medical History: Atrial Fibrillation, Coronary Artery Disease (CAD), Diabetes Mellitus, GERD/Reflux, Hyperlipidemia, Hypertension, Memory Impairment , Renal Disease, Skin Disorder, Vascular Disorder Additional Past Medical History / Comment(s): NH ULCER RT GREAT TOE. EDEMA MEL LEGS. SOME MEMORY CHANGES NOTED, SL DEMENTIA.PAD History of Any Multi-Drug Resistant Organisms: None Reported Past Surgical History: Appendectomy, Hysterectomy Additional Past Surgical History / Comment(s): carotid endartectomy left side, right leg stents 2012; ABD AORTOGRAM, RT FEM ANGIOGRAM.HX PERIPHERAL ANGIOGRAM THEN ANGIOPLASTY OF RT POPLITEAL ARTERY WITH STENTING OF RT TIBIOPERITONEAL TRUNCK , ALSO ATHRECTOMY OF RT POLITEAL/TIBIOPERTONEAL TRUNCK ( 08/04/14).HAD RT GREAT TOE NAIL REMOVED D/T INFECTION Past Anesthesia/Blood Transfusion Reactions: No Reported Reaction Past Psychological History: No Psychological Hx Reported Smoking Status: Never smoker Past Alcohol Use History: None Reported Past Drug Use History: None Reported - Past Family History Son(s) Family Medical History: Cancer Father Family Medical History: Coronary Artery Disease (CAD) Medications and Allergies Home Medications Medication Instructions Recorded Confirmed Type Allopurinol [Zyloprim] 100 mg PO DAILY 07/20/14 03/03/17 History Aspirin 81 mg PO HS 07/20/14 03/03/17 History Atenolol 100 mg PO BID 07/20/14 03/03/17 History Cholecalciferol [Vitamin D3] 1,000 unit PO DAILY 07/20/14 03/03/17 History Insulin Glargine,Hum.rec.anlog 20 unit SQ HS 07/20/14 03/03/17 History [Lantus Solostar] Isosorbide Mononitrate [Imdur] 30 mg PO DAILY 07/20/14 03/03/17 History Rivaroxaban [Xarelto] 20 mg PO HS 07/20/14 03/03/17 History amLODIPine [Norvasc] 5 mg PO BID 07/20/14 03/03/17 History glipiZIDE [Glucotrol] 10 mg PO AC-BID 07/20/14 03/03/17 History sitaGLIPtin PHOSPHATE [Januvia] 100 mg PO DAILY 07/20/14 03/03/17 History Furosemide [Lasix] 20 mg PO DAILY 08/03/14 03/03/17 History Benazepril [Lotensin] 20 mg PO DAILY 01/15/17 03/03/17 History Budesonide-Formot 160-4.5 Mcg 2 puff INHALATION RT-BID 01/15/17 03/03/17 History [Symbicort 160-4.5 Mcg Inhaler] Pantoprazole [Protonix] 40 mg PO DAILY 01/15/17 03/03/17 History metFORMIN HCL [Metformin HCl] 500 mg PO DAILY 01/15/17 03/03/17 History Gabapentin [Neurontin] 100 mg PO BID 03/03/17 03/03/17 History Allergies Allergy/AdvReac Type Severity Reaction Status Date / Time digoxin AdvReac Hallucinati Verified 03/03/17 06:27 ons Physical Examination - Vital Signs Vital Signs: Vital Signs Temp Pulse Pulse Resp BP BP Pulse Ox 03/03/17 06:28 97.3 F L 81 16 132/97 97 03/03/17 04:45 80 18 193/74 96 03/03/17 04:00 78 18 158/90 95 03/03/17 03:45 60 18 175/74 96 03/03/17 03:30 57 L 18 164/70 96 03/03/17 03:15 74 18 167/74 96 03/03/17 03:00 64 18 157/77 96 03/03/17 02:45 68 18 183/75 94 L 03/03/17 02:30 69 18 171/93 97 03/03/17 02:15 62 18 185/71 97 03/03/17 02:00 64 18 173/76 93 L 03/03/17 01:45 64 18 173/76 93 L 03/03/17 01:30 66 18 172/73 94 L 03/03/17 00:27 96.9 F L 82 18 169/77 95 Intake and Output 03/03/17 03/03/17 03/03/17 06:59 14:59 22:59 Intake Total 200 100 Output Total 1 Balance 200 99 Intake: IV 200 Sodium Chloride 0.9% 1, 200 000 ml @ 100 mls/hr IV . Q10H LINDSEY Rx#:[id number] Oral 100 Output: Stool 1 Other: # Voids 1 2 # Bowel Movements 1 1 Weight 63.503 kg - Constitutional General appearance: average body habitus, cooperative - EENT EENT: PERRL, mucous membranes moist - Respiratory Respiratory: lungs clear, normal breath sounds - Cardiovascular Cardiovascular: normal S1, normal S2 Extremities: no peripheral edema bilaterally - Gastrointestinal Gastrointestinal: normoactive bowel sounds - Integumentary Integumentary: normal - Neurologic Cranial nerve examination: PERRL, EOMI, VFF, V1/V2/V3 grossly intact, face symmetric, tongue midline, intact gag reflex, intact corneal reflex, normal palatal elevation Speech examination: intact Sensorimotor examination: intact Motor examination - right side: 4/5: biceps, triceps, wrist flexion, wrist extension, laboratory courier, hip flexors, knee extensors, dorsiflexion, toe extension (EHL) , plantarflexion Motor examination - left side: 5/5: biceps, triceps, wrist flexion, wrist extension, laboratory courier, hip flexors, knee extensors, dorsiflexion, toe extension (EHL) , plantarflexion Detailed sensory examination: intact Reflex and gait examination: intact Reflexes: 1+: ankle, bicep, knee, tricep - Musculoskeletal Musculoskeletal: no pain - Psychiatric Psychiatric: mood/affect appropriate, cooperative Results - Laboratory Findings CBC and BMP: 03/03/17 01:30 03/03/17 01:30 Abnormal Lab Findings: Abnormal Labs 03/03/17 03/03/17 03/03/17 01:30 01:30 01:30 RDW 18.9 H Neutrophils # 8.2 H PT INR Sodium 136 L BUN 40 H Creatinine 1.10 H Glucose 209 H POC Glucose (mg/dL) AST 62 H CK-MB (CK-2) 2.5 H* 03/03/17 03/03/17 03/03/17 01:30 01:37 11:37 RDW Neutrophils # PT 14.8 H INR 1.5 H Sodium BUN Creatinine Glucose POC Glucose (mg/dL) 209 H 282 H AST CK-MB (CK-2) Assessment and Plan (1) Brainstem stroke Status: Acute Code(s): I63.9 - CEREBRAL INFARCTION, UNSPECIFIED (2) Diabetes Status: Acute Code(s): E11.9 - TYPE 2 DIABETES MELLITUS WITHOUT COMPLICATIONS (3) History of left-sided carotid endarterectomy Status: Acute Code(s): Z98.890 - OTHER SPECIFIED POSTPROCEDURAL STATES (4) Hyperlipidemia Status: Acute Code(s): E78.5 - HYPERLIPIDEMIA, UNSPECIFIED (5) Hypertension Status: Acute Code(s): I10 - ESSENTIAL (PRIMARY) HYPERTENSION Plan: This patient is a 89-year-old right-handed white female who was admitted to hospital with sudden onset of dizziness and right-sided weakness. Symptoms began at 11 PM yesterday evening while she was laying in bed. She was unable to stand due to weakness and dizziness. She was brought into the emergency room at [facility]. She was seen by Dr. Howard who ordered a computed tomography scan of the brain. CAT scan of the brain was reported negative for any acute changes. She underwent a CTA angiogram of the head and neck which revealed blockage of the carotid arteries as noted above. Patient has been seen by vascular surgery and recommendations have been given by Dr. Browne. Patient's neurological examination reveals her to have slight right- sided hemiparesis as well as right finger-nose dysmetria. She is continuing to have symptoms of dizziness. Her clinical history and exam findings are suggesting possibility of brainstem stroke. We are recommending an MRI of the brain for further evaluation. She is already anticoagulated and is taking combination of Xarelto and Plavix. We will obtain a cardiology consultation regarding her history of atrial fibrillation and stent placement. Patient's daughter has requested a cardiology evaluation for the patient. We will continue close neurological follow-up for this patient during this admission. She will likely require some degree of subacute rehabilitation at the time of discharge. We will continue pulse monitoring of this patient's neurological condition during this admission. Her overall prognosis at this time remains guarded. All of her exam findings and history was reviewed today with the patient and her daughter at bedside. All of their questions were answered. We will reevaluate the patient after completion of her MRI of the brain. Time with Patient: Greater than 30
[2017-03-03] MEDS: SYMBICORT 160-4.5 MCG INHALER INHALATION SCH (19:04)
[2017-03-03] MEDS: glipiZIDE 10 MG TAB PO SCH (20:07)
[2017-03-03 20:20] VITALS: RESP 18
[2017-03-03 20:47] LABS: Glucose,Whole Blood 220 mg/dL (75-99)
[2017-03-03] MEDS: ASPIRIN 81 MG CHEW PO SCH (21:54)
[2017-03-03] MEDS: amLODIPine 5 MG TAB PO SCH (21:54)
[2017-03-03] MEDS: ATENOLOL 50 MG TAB PO SCH (21:54)
[2017-03-03] MEDS: GABAPENTIN 100 MG CAP PO SCH (21:54)
[2017-03-03] MEDS: INSULIN GLARGINE 100 UNIT/ML 10 ML VIAL SQ SCH (21:54)
[2017-03-03] MEDS: RIVAROXABAN 10 MG TAB PO SCH (21:55)
[2017-03-04 04:51] LABS: Anisocytosis Slight; CH 29.9; CHCM 31.6; HCT 40.2 % (34.0-46.0); HDW 2.32; HGB 12.7 gm/dL (11.4-16.0); MCHC 31.7 g/dL (31.0-37.0); MCV 94.9 fL (80.0-100.0); Macrocytosis Slight; Mean Platelet Volume 7.3; RBC 4.24 m/uL (3.80-5.40); RDW 18.8 % (11.5-15.5); WBC 9.8 k/uL (3.8-10.6)
[2017-03-04 05:10] LABS: Anion Gap 13 mmol/L; Blood Urea Nitrogen 22 mg/dL (7-17); Calcium 9.5 mg/dL (8.4-10.2); Carbon Dioxide 24 mmol/L (22-30); Chloride 98 mmol/L (98-107); Cholesterol 155 mg/dL (<200); Glucose 133 mg/dL (74-99); HDL Cholesterol 55 mg/dL (40-60); Non-African American GFR(MDRD) >60 (>60 ml/min/1.73 sqM); Potassium 4.1 mmol/L (3.5-5.1); Sodium 135 mmol/L (137-145); Triglycerides 130 mg/dL (<150)
[2017-03-04 05:55] LABS: Glucose,Whole Blood 159 mg/dL (75-99)
[2017-03-04] MEDS ORDERED: PANTOPRAZOLE 40 MG TABLET PO SCH (06:30)
[2017-03-04] MEDS: glipiZIDE 10 MG TAB PO SCH ×2 (06:55→18:01)
[2017-03-04] MEDS: SYMBICORT 160-4.5 MCG INHALER INHALATION SCH ×2 (08:41→21:17)
[2017-03-04] MEDS ORDERED: FAMOTIDINE 20 MG/2 ML VIAL IV SCH (09:00)
[2017-03-04] MEDS ORDERED: ALLOPURINOL 100 MG TAB PO SCH (09:00)
[2017-03-04] MEDS ORDERED: LINAGLIPTIN 5 MG TABLET PO SCH (09:00)
[2017-03-04] MEDS ORDERED: ISOSORBIDE MONONITRATE ER 30 MG TAB.ER.24H PO SCH (09:00)
[2017-03-04] MEDS ORDERED: CLOPIDOGREL 75 MG TAB PO SCH (09:00)
[2017-03-04] MEDS: SODIUM CHLORIDE 0.9% 1,000 ML IV SCH ×3 (09:17→16:39)
[2017-03-04] MEDS: ATENOLOL 50 MG TAB PO SCH ×2 (09:30→21:21)
[2017-03-04] MEDS: amLODIPine 5 MG TAB PO SCH ×2 (09:30→21:21)
[2017-03-04] MEDS: GABAPENTIN 100 MG CAP PO SCH ×2 (09:31→21:21)
[2017-03-04 11:42] LABS: Glucose,Whole Blood 206 mg/dL (75-99)
--- NOTE | 2017-03-04 14:30 | MR ---
EXAMINATION TYPE: MR brain wo con DATE OF EXAM: 03/04/2017 COMPARISON: CT brain from yesterday. HISTORY: Possible brainstem stroke, admitted one day earlier for altered mental status and dizziness. TECHNIQUE: Multiplanar, multisequence imaging of the brain and brainstem is performed without IV cont rast. FINDINGS: Diffusion weighted images demonstrate large area of increased signal on diffusion weighted images wit h diminished signal on ADC mapping involving the inferior half of the medial right cerebellum measuri ng approximately 5.0 x 3.0 x 2.5 cm on axial image 16 and sagittal image 11. No areas of suspicious r estricted diffusion is definitively seen in the brainstem, there is suspected mild edema in the adjac ent rostral medulla seen best on FLAIR axial image 60 and coronal T2-weighted image 19. There is no worrisome extra-axial fluid collection. There is ventricular and sulcal prominence consis tent with diffuse cerebral atrophy. There are focal and confluent areas of T2 hyperintensity seen thr oughout the white matter bilaterally. Lesions are nonspecific in appearance and distribution but most likely on basis of product of chronic small vessel ischemic change in patient of this age. Midline structures demonstrate normal morphology. The craniocervical junction appears within normal limits. Normal vascular flow voids are present. The visualized sinuses are clear and the globes are i ntact. IMPRESSION: 1. There is acute infarct involving the medial portion of the inferior half right cerebellar hemisphe re presumed probable posterior inferior cerebellar arterial distribution. 2. There is background of moderate diffuse cerebral atrophy and advanced chronic small vessel ischemi c change noted. A Yellow message has been communicated to Erica Meza via the [employer] Critical Result system on 03/04/2017 2:27 PM, Message ID [id number].
--- NOTE | 2017-03-04 15:20 | P.CRDCN ---
History of Present Illness Consult date: 03/04/17 Reason for Consult (text): Afib, CVA on Xarelto Chief complaint: dizziness, slurred speech History of present illness: This is a pleasant 89-year-old female with a known history of atrial fibrillation, currently on Xarelto. She presented with complaints of extreme dizziness and slurred speech. CT of the brain showed no no evidence of acute intracranial abnormality. She underwent a CTA of the head and neck that showed 50-60% right internal carotid artery stenosis and 70-80% left internal carotid artery stenosis. Carotid duplex showed no evidence of hemodynamically significant stenosis. We were asked to see the patient in consult due to history of atrial fibrillation on anticoagulation with symptoms of CVA. She continues to complain of dizziness and lower extremity weakness, more on the right. She feels her speech is quite a bit better. She denies missing doses of her anticoagulant and has not been holding for any reason in the recent past. She is scheduled to undergo an MRI of the brain today. Past Medical History Past Medical History: Atrial Fibrillation, Coronary Artery Disease (CAD), Diabetes Mellitus, GERD/Reflux, Hyperlipidemia, Hypertension, Memory Impairment , Renal Disease, Skin Disorder, Vascular Disorder Additional Past Medical History / Comment(s): NH ULCER RT GREAT TOE. EDEMA MEL LEGS. SOME MEMORY CHANGES NOTED, SL DEMENTIA.PAD History of Any Multi-Drug Resistant Organisms: None Reported Past Surgical History: Appendectomy, Hysterectomy Additional Past Surgical History / Comment(s): carotid endartectomy left side, right leg stents 2012; ABD AORTOGRAM, RT FEM ANGIOGRAM.HX PERIPHERAL ANGIOGRAM THEN ANGIOPLASTY OF RT POPLITEAL ARTERY WITH STENTING OF RT TIBIOPERITONEAL TRUNCK , ALSO ATHRECTOMY OF RT POLITEAL/TIBIOPERTONEAL TRUNCK ( 08/04/14).HAD RT GREAT TOE NAIL REMOVED D/T INFECTION Past Anesthesia/Blood Transfusion Reactions: No Reported Reaction Past Psychological History: No Psychological Hx Reported Smoking Status: Never smoker Past Alcohol Use History: None Reported Past Drug Use History: None Reported - Past Family History Son(s) Family Medical History: Cancer Father Family Medical History: Coronary Artery Disease (CAD) Medications and Allergies Home Medications Medication Instructions Recorded Confirmed Type Allopurinol [Zyloprim] 100 mg PO DAILY 07/20/14 03/03/17 History Aspirin 81 mg PO HS 07/20/14 03/03/17 History Atenolol 100 mg PO BID 07/20/14 03/03/17 History Cholecalciferol [Vitamin D3] 1,000 unit PO DAILY 07/20/14 03/03/17 History Insulin Glargine,Hum.rec.anlog 20 unit SQ HS 07/20/14 03/03/17 History [Lantus Solostar] Isosorbide Mononitrate [Imdur] 30 mg PO DAILY 07/20/14 03/03/17 History Rivaroxaban [Xarelto] 20 mg PO HS 07/20/14 03/03/17 History amLODIPine [Norvasc] 5 mg PO BID 07/20/14 03/03/17 History glipiZIDE [Glucotrol] 10 mg PO AC-BID 07/20/14 03/03/17 History sitaGLIPtin PHOSPHATE [Januvia] 100 mg PO DAILY 07/20/14 03/03/17 History Furosemide [Lasix] 20 mg PO DAILY 08/03/14 03/03/17 History Benazepril [Lotensin] 20 mg PO DAILY 01/15/17 03/03/17 History Budesonide-Formot 160-4.5 Mcg 2 puff INHALATION RT-BID 01/15/17 03/03/17 History [Symbicort 160-4.5 Mcg Inhaler] Pantoprazole [Protonix] 40 mg PO DAILY 01/15/17 03/03/17 History metFORMIN HCL [Metformin HCl] 500 mg PO DAILY 01/15/17 03/03/17 History Gabapentin [Neurontin] 100 mg PO BID 03/03/17 03/03/17 History Allergies Allergy/AdvReac Type Severity Reaction Status Date / Time digoxin AdvReac Hallucinati Verified 03/03/17 06:27 ons Physical Exam Vitals: Vital Signs Temp Pulse Resp BP Pulse Ox 03/04/17 12:00 97.0 F L 69 18 141/69 92 L 03/04/17 08:00 97.1 F L 84 18 183/53 94 L 03/04/17 04:20 97.5 F L 78 18 143/76 92 L 03/04/17 00:00 98.2 F 71 18 142/76 90 L 03/03/17 20:00 98.1 F 65 18 155/71 92 L 03/03/17 18:04 99.8 F H 80 16 142/72 94 L Intake and Output 03/04/17 03/04/17 03/04/17 06:59 14:59 22:59 Output Total 100 2 Balance -100 -2 Output: Urine 100 Stool 2 Other: Voiding Method Bedpan Bedpan Diaper Diaper Weight 69.3 kg PHYSICAL EXAMINATION: HEENT: Head is atraumatic, normocephalic. Pupils equal, round. Neck is supple. There is no elevated jugular venous pressure. HEART EXAMINATION: Heart sounds irregularly irregular, S1 and S2 normal. No murmur or gallop heard. CHEST EXAMINATION: Lungs are clear to auscultation and precussion. No chest wall tenderness is noted on palpation or with deep breathing. ABDOMEN: Soft, nontender. Bowel sounds are heard. No organomegaly noted. EXTREMITIES: 2+ peripheral pulses with no evidence of peripheral edema and no calf tenderness noted. Mild weakness noted to the right lower extremity compared with the left. NEUROLOGIC [patient is awake, alert and oriented x3.] . Results 03/04/17 04:00 03/04/17 04:00 Lipids 03/04/17 Range/Units 04:00 Triglycerides 130 (<150) mg/dL Cholesterol 155 (<200) mg/dL HDL Cholesterol 55 (40-60) mg/dL CBC 03/04/17 Range/Units 04:00 WBC 9.8 (3.8-10.6) k/uL RBC 4.24 (3.80-5.40) m/uL Hgb 12.7 (11.4-16.0) gm/dL Hct 40.2 (34.0-46.0) % Plt Count 236 (150-450) k/uL Comprehensive Metabolic Panel 03/04/17 Range/Units 04:00 Sodium 135 L (137-145) mmol/L Potassium 4.1 (3.5-5.1) mmol/L Chloride 98 (98-107) mmol/L Carbon Dioxide 24 (22-30) mmol/L BUN 22 H (7-17) mg/dL Creatinine 0.80 (0.52-1.04) mg/dL Glucose 133 H (74-99) mg/dL Calcium 9.5 (8.4-10.2) mg/dL Current Medications Generic Name Dose Route Start Last Admin Trade Name Freq PRN Reason Stop Dose Admin Allopurinol 100 mg 07/19/17 09:00 03/04/17 09:30 Zyloprim PO 100 mg DAILY LINDSEY Administration Amlodipine Besylate 5 mg 03/03/17 21:00 03/04/17 09:30 Norvasc PO 5 mg BID LINDSEY Administration Aspirin 81 mg 03/03/17 21:00 03/03/17 21:54 Aspirin PO 81 mg HS LINDSEY Administration Atenolol 100 mg 03/03/17 21:00 03/04/17 09:30 Tenormin PO 100 mg BID LINDSEY Administration Budesonide/Formoterol Fumarate 2 puff 03/03/17 20:00 03/04/17 08:41 Symbicort 160-4.5 Mcg Inhaler INHALATION Not Given RT-BID LINDSEY Clopidogrel Bisulfate 75 mg 03/04/17 09:00 03/04/17 09:30 Plavix PO 75 mg DAILY LINDSEY Administration Famotidine 20 mg 03/04/17 09:00 03/04/17 09:31 Pepcid IV 20 mg DAILY LINDSEY Administration Gabapentin 100 mg 03/03/17 21:00 03/04/17 09:31 Neurontin PO 100 mg BID LINDSEY Administration Glipizide 10 mg 03/03/17 17:30 03/04/17 06:55 Glucotrol PO 10 mg AC-BID LINDSEY Administration Sodium Chloride 1,000 mls @ 100 mls/hr 03/03/17 03:15 03/04/17 09:33 Saline 0.9% IV 100 mls/hr .Q10H LINDSEY Administration Insulin Glargine 20 unit 03/03/17 21:00 03/03/17 21:54 Lantus SQ 20 unit HS LINDSEY Administration Isosorbide Mononitrate 30 mg 03/04/17 09:00 03/04/17 09:31 Imdur PO 30 mg DAILY LINDSEY Administration Linagliptin 5 mg 03/04/17 09:00 03/04/17 09:31 Tradjenta PO 5 mg DAILY LINDSEY Administration Meclizine HCl 25 mg 03/03/17 16:12 Antivert PO QID PRN Vertigo Miscellaneous Information 1 each 03/03/17 02:06 03/03/17 03:39 Rx Info: Iv Contrast Was Given MISCELLANE 03/05/17 02:07 1 each DAILY PRN Administration Per Protocol Pantoprazole Sodium 40 mg 03/04/17 06:30 03/04/17 06:55 Protonix PO 40 mg DAILY@0630 LINDSEY Administration Rivaroxaban 20 mg 03/03/17 21:00 03/03/17 21:55 Xarelto PO 20 mg HS LINDSEY Administration Intake and Output 03/04/17 03/04/17 03/04/17 06:59 14:59 22:59 Output Total 100 2 Balance -100 -2 Output: Urine 100 Stool 2 Other: Voiding Method Bedpan Bedpan Diaper Diaper Weight 69.3 kg 03/04/17 04:00 03/04/17 04:00 Assessment and Plan Plan: Assessment and plan #1 symptoms of dizziness, slurred speech and weakness cannot rule out CVA at this point however could be also acute vertigo #2 carotid artery stenosis, bilateral left greater than right #3 chronic atrial fibrillation, anticoagulated #4 hyperlipidemia #5 hypertension #6 peripheral vascular disease 7 coronary artery disease #8 diabetes mellitus From cardiology's perspective, we will add lipitor 20 mg daily. All other Medications were reviewed we'll continue the same at this time. Further recommendations to follow depending on neurology input and MRI results. CATTLE BRANDER note has been reviewed, I agree with a documented findings and plan of care. Patient was seen and examined.
--- NOTE | 2017-03-04 16:54 | P.PN ---
Subjective 89-year-old female admitted with vertigo and right-sided weakness, and gait instability the working diagnosis is possibly a brain stem stroke. Patient is undergoing MRI today. Patient is already on aspirin and Plavix and anticoagulation with Zahl 2. Which will be continued patient most probably related to be discharged to subacute rehabilitation tomorrow there is no change in her neurological status. CARDIOVASCULAR: No chest pain, no orthopnea, no PND, no palpitations. PULMONARY: Denied any shortness of breath. No cough or hemoptysis. GASTROINTESTINAL: No diarrhea, nausea or vomiting. No abdominal pain. Normoactive bowel sounds. Objective - Vital Signs Vital signs: Vital Signs Temp 97.0 F L 03/04/17 12:00 Pulse 69 03/04/17 12:00 Resp 18 03/04/17 12:00 BP 141/69 03/04/17 12:00 Pulse Ox 92 L 03/04/17 12:00 Intake & Output 03/03/17 03/04/17 03/04/17 18:59 06:59 18:59 Intake Total 800 Output Total 3 100 202 Balance 797 -100 -202 Weight 69.3 kg Intake: IV 400 Sodium Chloride 0.9% 1, 400 000 ml @ 100 mls/hr IV . Q10H [facility] Rx#:[id number] Oral 400 Output: Urine 100 200 Stool 2 2 Urine/Stool Mix 1 Other: Voiding Method Bedpan Bedpan Bedpan Diaper Diaper Diaper # Voids 3 1 1 # Bowel Movements 1 - Exam GENERAL: The patient is alert and oriented x3, not in any acute distress. Well developed, well nourished. HEENT: Pupils are round and equally reacting to light. EOMI. No scleral icterus. No conjunctival pallor. Normocephalic, atraumatic. No pharyngeal erythema. No thyromegaly. CARDIOVASCULAR: S1 and S2 present. No murmurs, rubs, or gallops. PULMONARY: Chest is clear to auscultation, no wheezing or crackles. ABDOMEN: Soft, nontender, nondistended, normoactive bowel sounds. No palpable organomegaly. MUSCULOSKELETAL: No joint swelling or deformity. EXTREMITIES: No cyanosis, clubbing, or pedal edema. NEUROLOGICAL: patient has gait instability and right-sided weakness. SKIN: No rashes. - Labs CBC & Chem 7: 03/04/17 04:00 03/04/17 04:00 Labs: Abnormal Lab Results - Last 24 Hours (Table) 03/03/17 03/03/17 03/04/17 Range/Units 16:42 20:46 04:00 RDW (11.5-15.5) % Sodium 135 L (137-145) mmol/L BUN 22 H (7-17) mg/dL Glucose 133 H (74-99) mg/dL POC Glucose (mg/dL) 230 H 220 H (75-99) mg/dL 03/04/17 03/04/17 03/04/17 Range/Units 04:00 05:52 11:39 RDW 18.8 H (11.5-15.5) % Sodium (137-145) mmol/L BUN (7-17) mg/dL Glucose (74-99) mg/dL POC Glucose (mg/dL) 159 H 206 H (75-99) mg/dL Assessment and Plan Plan: 1 vertigo with gait instability right-sided weak weakness and patient is found to have her last stroke: Patient is already on anticoagulation with Xarelto along with aspirin and Plavix.patient.possible discharge to subacute dilatation tomorrow 2 history of atrial fibrillation: And an anti-correlation patient is presently sinus rhythm. 3Coronary artery disease and peripheral acid disease for which patient is on aspirin and Plavix patient is also on a statin. 4 type 2 diabetes mellitus: Resume her home regimen and monitor blood sugars and titration of medications as per the blood sugars #5 gastroesophageal reflux disease #6 hyperlipidemia #7 acute renal failure secondary to the Lasix she was taking for peripheral edema which waas discontinued because of her acute renal dysfunction his kidney function improved.
[2017-03-04 17:05] LABS: Glucose,Whole Blood 168 mg/dL (75-99)
--- NOTE | 2017-03-04 18:31 | P.PN ---
Subjective This patient is a 89-year-old right-handed white female who was seen in neurology consultation yesterday with symptoms of acute right sided weakness and dysmetria. Patient was complaining of acute onset of vertigo and dizziness when she presented to the emergency room yesterday. She underwent an initial computed tomography scan of the brain in the ER which failed to reveal any evidence of acute stroke. She was seen in neurology consultation yesterday and her neurological exam findings suggested possibility of acute stroke with right sided weakness and dysmetria. She also had evidence of brainstem ischemia due to her neurological findings. She was sent for MRI of the brain today which was completed. MRI reveals evidence of an acute infarct involving the right cerebellar hemisphere. There is also involvement of the vermis of the cerebellum. We reviewed the results of the MRI today with the patient. Patient was seen by cardiology as she does have a history of chronic atrial fibrillation and had been anticoagulated with a combination of Xarelto and Plavix. Cardiology has seen the patient today and have recommended to start her on Lipitor. She was started on 20 mg Lipitor daily. The patient's MRI results are consistent with her current neurological findings. Due to the involvement of the cerebellum in the vermis this does blink with brainstem tracks. Her clinical findings are stable today and her speech has shown some improvement as compared to initial presentation. Patient will likely need subacute rehabilitation and would suggest a consultation with Dr. Landry for possible inpatient rehab placement for the patient as well. As noted she does have history of chronic atrial fibrillation. We will await any further recommendations and cardiology regarding her cardiac arrhythmia and current findings of acute stroke. We did review her MRI results today with Dr. MARICRUZ Fox.. His impression is that her stroke is likely thrombotic rather than due to her long history of atrial fibrillation. We did discuss the results of the MRI of the brain that was done today which reveals a significant large right cerebellar stroke. She is continuing on anticoagulation for her atrial fibrillation. There is concern for possibility of herniation syndrome for this patient. We have discussed the results of the MRI today with the patient's daughter who is at bedside. We've explained the results of the MRI and we are recommending that she be transferred to the neuro ICU at [facility] as a precautionary measure to monitor for early evidence of herniation syndrome. Due to the extent of her stroke involving the entire right cerebellum and vermis along with the anticoagulation that she is currently on she is at risk of developing possibility of cerebral edema and herniation syndrome. She will require neurology and neurosurgery monitoring for at least 48-72 hours in an ICU setting. We've explained the results of all of her testing thus far in detail to the daughter and son who is at bedside. All of their questions were answered. They're in agreement to have this patient transferred to [facility] neurology ICU for close monitoring and further treatment. Dr. MARICRUZ Fox is in agreement for further transfer this patient as well. He is recommending that she be maintained on Xarelto on Plavix at this time. We have contacted the transfer team at [facility] and have spoken with Dr. Dunham. Case was discussed in detail with him and he is the stroke physician on-call. He is accepted this patient in transfer to [facility] neuro ICU as soon as a bed is a sign. We have discussed all of these findings in detail today with the family members who are at her bedside. They' re in agreement with our current treatment plan. We will now proceed with transfer of this patient immediately by EMS to [facility] for further management. Her overall prognosis at this time remains very guarded. Objective - Vital Signs Vital signs: Vital Signs Temp 97.0 F L 03/04/17 12:00 Pulse 69 03/04/17 12:00 Resp 18 03/04/17 12:00 BP 141/69 03/04/17 12:00 Pulse Ox 92 L 03/04/17 12:00 Intake & Output 03/03/17 03/04/17 03/04/17 18:59 06:59 18:59 Intake Total 800 Output Total 3 100 202 Balance 797 -100 -202 Weight 69.3 kg Intake: IV 400 Sodium Chloride 0.9% 1, 400 000 ml @ 100 mls/hr IV . Q10H [facility] Rx#:[id number] Oral 400 Output: Urine 100 200 Stool 2 2 Urine/Stool Mix 1 Other: Voiding Method Bedpan Bedpan Bedpan Diaper Diaper Diaper # Voids 3 1 1 # Bowel Movements 1 - Exam Physical examination: PHYSICAL EXAMINATION: Patient is resting comfortably in bed. VITAL SIGNS: Blood pressure is [141/69]. Heart rate is [69]. Respiration is [18] . Temperature is [97.0]. HEENT: Head is atraumatic, neck is supple, there were no carotid bruits. CHEST: Lungs are clear to auscultation and percussion. CARDIAC: S1, S2 normal rate and rhythm. There is no murmur. ABDOMEN: Soft and nontender. Bowel sounds are present. EXTREMITIES: There is no pedal edema. Peripheral pulses are present. Neurological examination: Patient's neurological examination is unchanged from yesterday. - Labs CBC & Chem 7: 03/04/17 04:00 03/04/17 04:00 Labs: Abnormal Lab Results - Last 24 Hours (Table) 03/03/17 03/03/17 03/04/17 Range/Units 16:42 20:46 04:00 RDW (11.5-15.5) % Sodium 135 L (137-145) mmol/L BUN 22 H (7-17) mg/dL Glucose 133 H (74-99) mg/dL POC Glucose (mg/dL) 230 H 220 H (75-99) mg/dL 03/04/17 03/04/17 03/04/17 Range/Units 04:00 05:52 11:39 RDW 18.8 H (11.5-15.5) % Sodium (137-145) mmol/L BUN (7-17) mg/dL Glucose (74-99) mg/dL POC Glucose (mg/dL) 159 H 206 H (75-99) mg/dL Assessment and Plan (1) Brainstem stroke Status: Acute Code(s): I63.9 - CEREBRAL INFARCTION, UNSPECIFIED (2) Diabetes Status: Acute Code(s): E11.9 - TYPE 2 DIABETES MELLITUS WITHOUT COMPLICATIONS (3) History of left-sided carotid endarterectomy Status: Acute Code(s): Z98.890 - OTHER SPECIFIED POSTPROCEDURAL STATES (4) Hyperlipidemia Status: Acute Code(s): E78.5 - HYPERLIPIDEMIA, UNSPECIFIED (5) Hypertension Status: Acute Code(s): I10 - ESSENTIAL (PRIMARY) HYPERTENSION Plan: This patient is a 89-year-old female who was seen yesterday on neurology consultation for evaluation of dizziness and right-sided dysmetria. Her neurological findings yesterday indicated probable acute stroke syndrome. She was sent for MRI of the brain today which was completed and reveals evidence of a very large right cerebellar stroke involving more than three quarters of the right cerebellum and vermis. She is currently on anticoagulation with Xarelto and Plavix for treatment of chronic atrial fibrillation. Case was discussed today with the patient's daughter and son at bedside. We have recommended that the patient be transferred to the neuro intensive care unit at [facility] for close monitoring for early evidence of herniation syndrome. They are in full agreement and we will have made plans to transfer this patient today by EMS to an [facility] neuro ICU for further management. Case was discussed with Dr. MARICRUZ Fox who is in agreement for transfer this patient. He recommends she be maintained on Xarelto and Plavix at this time. Neurologically the patient remains stable and intact at this time. Her blood pressure at this time is 140/69 with a heart rate of 70. The patient remains stable and is being readied for transfer I EMS to [facility] neuro ICU for close monitoring and further treatment and management. The patient is at risk for possible herniation syndrome due to the large extensive right cerebellar stroke in the posterior fossa. She will be closely monitored in the neuro ICU at [facility] for any further management and treatment. The family is aware of her critical condition at this time due to the large right cerebellar stroke and risk of herniation syndrome. They have been updated on all of her test results today in detail. They are all in agreement and she will be transferred today to [facility] neuro ICU. The excepting staff physician at [facility] was Dr. Dunham who is accepted her in transfer to the neuro ICU. Her overall prognosis at this time remains very guarded.
[2017-03-04 20:16] VITALS: BP 156/74; PULSE 74; TEMP 97.6
[2017-03-04] MEDS ORDERED: ATORVASTATIN 20 MG TAB PO SCH (21:00)
[2017-03-04 21:04] LABS: Glucose,Whole Blood 160 mg/dL (75-99)
[2017-03-04] MEDS: RIVAROXABAN 10 MG TAB PO SCH (21:21)
[2017-03-04] MEDS: ASPIRIN 81 MG CHEW PO SCH (21:21)
[2017-03-04] MEDS: INSULIN GLARGINE 100 UNIT/ML 10 ML VIAL SQ SCH (21:21)
--- NOTE | 2017-03-05 04:58 | EEG ---
DATE OF SERVICE: 03/04/2017 ELECTROENCEPHALOGRAPHIC EXAMINATION REPORT INDICATION FOR EXAMINATION: This patient is an 89-year-old female initially admitted with acute dizziness and right-sided dysmetria. MRI of the brain reveals a large right cerebellar stroke. AGE: 89. EEG FINDINGS: A routine 21-channel, awake digital EEG recording was accomplished utilizing the 10-20 international system with bipolar and referential montages. The background activity in the most alert resting state consists of a low to medium amplitude fairly well-developed and well-sustained 7 Hz activity over the posterior head regions. This posterior rhythm attenuates to eye opening. There is a small amount of low amplitude 18-20 Hz beta activity seen maximally over the anterior head regions. Muscle and movement artifact was observed on a few occasions during the tracing. Hyperventilation was not performed. Photic stimulation at flash frequencies of 2-30 Hz produced a good symmetrical occipital driving response. No epileptiform discharges were seen. IMPRESSION: This EEG is within normal limits for the patient's age. The EEG failed to reveal any focal, lateralized, or epileptiform abnormalities. Clinical correlation is recommended. [facility]
== END 2017-03-04 23:00 | disposition short-term general hospital (02) | DRG 64 ==
LOC: EC 00:20 → 6SEL 04:34
PROVIDERS: ADMIT Internal Medicine; ATTEND Internal Medicine
DX: I63.341 Cerebral infarction due to thrombosis of right cerebellar artery (principal); G93.5 Compression of brain; F03.90 Unspecified dementia, unspecified severity, without behavioral disturbance, psychotic disturbance, mood disturbance, and anxiety; G81.91 Hemiplegia, unspecified affecting right dominant side; E11.51 Type 2 diabetes mellitus with diabetic peripheral angiopathy without gangrene; I48.2 Chronic atrial fibrillation; I25.10 Atherosclerotic heart disease of native coronary artery without angina pectoris; S32.019D Unspecified fracture of first lumbar vertebra, subsequent encounter for fracture with routine healing; E11.22 Type 2 diabetes mellitus with diabetic chronic kidney disease; N18.2 Chronic kidney disease, stage 2 (mild); E11.21 Type 2 diabetes mellitus with diabetic nephropathy; T50.1X5A Adverse effect of loop [high-ceiling] diuretics, initial encounter; R47.81 Slurred speech; I12.9 Hypertensive chronic kidney disease with stage 1 through stage 4 chronic kidney disease, or unspecified chronic kidney disease; R60.0 Localized edema; K21.9 Gastro-esophageal reflux disease without esophagitis; E78.5 Hyperlipidemia, unspecified; I65.23 Occlusion and stenosis of bilateral carotid arteries; R26.9 Unspecified abnormalities of gait and mobility; R29.706 NIHSS score 6; R11.2 Nausea with vomiting, unspecified; S22.089D Unspecified fracture of T11-T12 vertebra, subsequent encounter for fracture with routine healing; Z79.82 Long term (current) use of aspirin; Z79.899 Other long term (current) drug therapy; Z82.49 Family history of ischemic heart disease and other diseases of the circulatory system; Z79.51 Long term (current) use of inhaled steroids; Z79.01 Long term (current) use of anticoagulants; Z79.02 Long term (current) use of antithrombotics/antiplatelets; Z88.8 Allergy status to other drugs, medicaments and biological substances; Z79.4 Long term (current) use of insulin; Z90.49 Acquired absence of other specified parts of digestive tract; Z90.710 Acquired absence of both cervix and uterus; Z80.9 Family history of malignant neoplasm, unspecified; Z86.79 Personal history of other diseases of the circulatory system; Z86.19 Personal history of other infectious and parasitic diseases; Z87.2 Personal history of diseases of the skin and subcutaneous tissue; Z95.820 Peripheral vascular angioplasty status with implants and grafts; Z86.73 Personal history of transient ischemic attack (TIA), and cerebral infarction without residual deficits
CPT/HCPCS: 36415; 70450; 70496; 70498; 70551; 71020; 80048; 80053; 80061; 82550; 82553; 84484; 85025; 85027; 85610; 85730; 93005; 93880; 94640; 95819; 96361; 96374; 99285